=== PATIENT | female | born 1955 | race Caucasian/White ===

== ENCOUNTER 2017-12-16 12:08 | Emergency (ER) | payer MEDICARE ==
--- NOTE | 2017-12-16 12:20 | Emergency Department Record ---
History of Present Illness - General Chief complaint: Cold Stated complaint: CONGESTION/COUGH Time Seen by Provider: 12/16/17 12:19 Source: Patient Mode of Arrival: Ambulatory Limitations: No limitations - History of Present Illness Initial comments: The patient is here due to a 10 day hx of cough and congestion with mild SOB. She denies any fever, sputum, production, CP, back pain or hemoptysis. The patient does have a hx of COPD and does still smoke approx. 2 PPD of tobacco. The patient also denies any AP, nausea, vomiting, or diarrhea and has been eating and drinking normally. MD complaint: Other Onset/Timin -: Days(s) Severity: Mild, Moderate Severity scale (1-10): 5 Quality: Aching Consistency: Constant Improves with: None Worsens with: None Associated Symptoms: Cough - Related Data Home Medications Medication Instructions Recorded Confirmed Last Taken Hydrocodone/Acetaminophen 1 tab PO Q8H 12/16/17 12/16/17 Unknown [Hydrocodone/Acetaminophen 7.5mg/325mg] Previous Rx's Medication Instructions Recorded Levofloxacin [Levaquin] 750 mg PO DAILY #4 tab 12/16/17 Levofloxacin [Levaquin] 750 mg PO DAILY #4 tablet 12/16/17 Allergies Allergy/AdvReac Type Severity Reaction Status Date / Time procaine HCl [From Novocain] Allergy Severe SWELLING Verified 12/31/14 11:33 OF THE FACE Travel Screening - Travel/Exposure Within Last 30 Days Have you traveled within the last 30 days?: No Review of Systems Constitutional: Reports: Malaise. Denies: Chills, Fever Eyes: Denies: Eye discharge ENT: Reports: Congestion Respiratory: Reports: Cough, Dyspnea. Denies: Hemoptysis, Stridor, Wheezes Cardiovascular: Denies: Arrhythmia, Chest pain Endocrine: Reports: Fatigue Gastrointestinal: Denies: Abdominal pain, Diarrhea, Vomiting Genitourinary: Denies: Dysuria Musculoskeletal: Denies: Back pain Past Medical History - SOCIAL HISTORY Smoking Status: Current every day smoker Alcohol Use: None Drug Use: None - RESPIRATORY Hx Respiratory Disorders: Yes Hx COPD: Yes Hx Sleep Apnea: Yes Hx of CPAP: Yes - CARDIOVASCULAR Hx Cardio Disorders: Yes Hx Hypertension: Yes - NEURO Hx Neuro Disorders: No - GI Hx GI Disorders: No - Hx Genitourinary Disorders: No - ENDOCRINE Hx Endocrine Disorders: Yes Hx Thyroid Disease: Yes - MUSCULOSKELETAL Hx Musculoskeletal Disorders: No - PSYCH Hx Psych Problems: No - HEMATOLOGY/ONCOLOGY Hx Hematology/Oncology Disorders: No Family Medical History Any Significant Family History?: No Physical Exam - General General Appearance: Alert, Oriented x3, Cooperative, No acute distress (The patient is speaking in full sentences with no difficulty.) - Head Head exam: Atraumatic, Normocephalic - Eye Eye exam: Normal appearance, PERRL - ENT Throat exam: Normal inspection. negative: Tonsillar erythema, Tonsillar exudate - Neck Neck exam: Normal inspection, Full ROM. negative: Tenderness - Respiratory Respiratory exam: Normal lung sounds bilaterally. negative: Accessory muscle use, Decreased breath sounds, Rales, Respiratory distress, Rhonchi, Stridor, Wheezes - Cardiovascular Cardiovascular Exam: Regular rate, Normal rhythm, Normal heart sounds - GI/Abdominal GI/Abdominal exam: Soft, Normal bowel sounds. negative: Tenderness - Extremities Extremities exam: Normal inspection, Full ROM, Normal capillary refill. negative: Tenderness - Neurological Neurological exam: Alert. negative: Motor sensory deficit Course Vital Signs 12/16/17 12:13 Temperature 98.1 F Pulse Rate 65 Respiratory 18 Rate Blood Pressure 190/90 Pulse Ox 94 L - Reevaluation(s) Reevaluation #1: The patient is doing better at this time. She is up walking with no difficulty and on exam has clear lungs. I did discuss the xray report that does demonstrate a possible LLL infiltrate. We will place the patient on Levaquin and recommend she decrease her tobacco use and use her home inhallers. She is to see her PCP next week for recheck. 12/16/17 13:19 Disposition Disposition: Discharge Clinical Impression: Pneumonia Qualifiers: Pneumonia type: due to unspecified organism Laterality: left Lung location: lower lobe of lung Qualified Code(s): J18.1 - Lobar pneumonia, unspecified organism Disposition: Home, Self-Care Condition: (2) Stable Instructions: Pneumonia (ED) Additional Instructions: Please continue your home medicines including your Albuterol inhaller and decrease your tobacco use. Continue the Levaquin as directed and please see your family doctor for recheck early next week. Return to the ER for any worsening symptoms. Prescriptions: Levofloxacin [Levaquin] 750 mg PO DAILY #4 tablet Levofloxacin [Levaquin] 750 mg PO DAILY #4 tab Forms: Patient Portal Access Time of Disposition: 13:28 Quality - Quality Measures Quality Measures: N/A - Blood Pressure Screening View Details: Yes Does Patient Have Any of the Following: No Blood Pressure Classification: Hypertensive Reading Systolic Measurement: 190 Diastolic Measurement: 90 Screening for High Blood Pressure: < First Hypertensive BP, F/U Documented > [ [id number]] First Hypertensive Follow-up Interventions: Referral to alternative/primary care provider.
[2017-12-16] MEDS ORDERED: IPRATROPIUM/ALBUTEROL (0.5MG/3MG) NEB INH ONE (12:24)
[2017-12-16] MEDS ORDERED: LEVOFLOXACIN 500 MG TABLET PO ONE (13:03)
--- NOTE | 2017-12-18 10:41 | RADIOLOGY REPORT ---
DATE: 12/16/2017 at 12:55 p.m. EXAM: TWO-VIEW CHEST. HISTORY: Cough for the past week. TECHNIQUE: PA and lateral upright views of the chest were obtained. COMPARISON: None. FINDINGS: The heart is upper normal in size. The mediastinum and pulmonary vasculature are normal. There is focal atelectasis or infiltrate within the retrocardiac left lower lobe. Minor atelectasis is also present at the right lung base. There is no pneumothorax or effusion. The bones appear intact. The lungs are hyperinflated consistent with underlying chronic obstructive pulmonary disease. IMPRESSION: 1. MILD INFILTRATE WITHIN THE RETROCARDIAC LEFT LOWER LOBE. 2. MINOR ATELECTASIS AT THE RIGHT LUNG BASE. 3. UNDERLYING CHRONIC OBSTRUCTIVE PULMONARY DISEASE. JOB NUMBER: [id number] MTDD
== END 2017-12-16 13:34 | disposition home or self-care (01) ==
LOC: ER 12:08
DX: J18.1 Lobar pneumonia, unspecified organism (principal); R06.02 Shortness of breath; J44.9 Chronic obstructive pulmonary disease, unspecified; I10 Essential (primary) hypertension; F17.210 Nicotine dependence, cigarettes, uncomplicated
CPT/HCPCS: 71046; 94640; 99283; 99284